=== PATIENT | female | born 1955 | race Caucasian/White ===

== ENCOUNTER 2017-01-15 10:43 | Emergency (ER) | payer BC ==
[2017-01-15 12:15] VITALS: BP 111/77
[2017-01-15] MEDS ORDERED: Albuterol 2.5 MG/3 ML NEB.SOL* (0.083%) INH ONE (12:41)
[2017-01-15] MEDS ORDERED: Ipratropium 0.5MG/2.5ML NEB* 0.5 MG/2.5 ML NEB.SOLN INH ONE (12:41)
--- NOTE | 2017-01-15 12:47 | UC ---
Respiratory Complaint HPI - History of Current Complaint Chief Complaint: UCGeneralIllness Stated Complaint: COUGH, AND CHEST CONGESTION Time Seen by Provider: 01/15/17 12:36 Hx Obtained From: Patient ?: No Onset/Duration: Gradual Onset - started 1-2 weeks ago with sinus congestion and cough. whole office is sick with same. now she is coughing worse and wheezing. has tried albuterol but not today is also using OTC cold meds and tesselon perles with little relief Timing: Intermittent Episodes Severity Initially: Mild Severity Currently: Moderate Aggravating Factors: Exertion, Deep Breaths Alleviating Factors: Nothing Associated Signs And Symptoms: Positive: URI, Nasal Congestion. Negative: Fever , Chills Related History: Seasonal Allergies - Allergies/Home Medications Allergies/Adverse Reactions: Allergies Allergy/AdvReac Type Severity Reaction Status Date / Time Sulfa Antibiotics Allergy Intermediate Hives Verified 01/15/17 12:06 Levofloxacin [From Levaquin] Allergy Hives Verified 01/15/17 12:06 fluroquinolones Allergy Hives Uncoded 01/15/17 12:06 Home Medications: Home Medications Benzonatate CAP* [Tessalon CAP*] 100 mg PO TID 01/15/17 [History Confirmed 01/15] PMH/Surg Hx/FS Hx/Imm Hx Previously Healthy: Yes Endocrine History Of: Denies: Diabetes Cardiovascular History Of: Denies: Hypertension Respiratory History Of: Reports: Asthma - Allergies Psychological History Of: Denies: Anxiety, Depression - Surgical History Surgical History: Yes Surgery Procedure, Year, and Place: T&A age 7 years. Left hand RA nodule. Left breast lobectomy - Family History Known Family History: Positive: None - Social History Occupation: Employed Full-time Lives: With Family Alcohol Use: Weekly Alcohol Amount: a few drinks per week Substance Use Type: None Smoking Status (MU): Never Smoked Tobacco Have You Smoked in the Last Year: No Review of Systems Constitutional: Negative Skin: Negative Eyes: Negative ENT: Other - no ear pain, does have NC Respiratory: Cough Cardiovascular: Negative Musculoskeletal: Negative Neurological: Negative Psychological: Negative All Other Systems Reviewed And Are Negative: Yes Physical Exam Triage Information Reviewed: Yes Appearance: Well-Appearing, No Pain Distress, Well-Nourished Vital Signs: Initial Vital Signs Temp 98.4 F 01/15/17 12:07 Pulse 88 01/15/17 12:07 Resp 18 01/15/17 12:07 BP 111/77 01/15/17 12:07 Pulse Ox 98 01/15/17 12:07 Vital Signs Reviewed: Yes Eyes: Positive: Conjunctiva Clear ENT: Positive: Pharynx normal, Nasal congestion, TMs normal Neck exam: Normal Neck: Positive: No Lymphadenopathy Respiratory: Positive: No respiratory distress, Wheezing - Upper airways bilaterally Cardiovascular Exam: Normal Cardiovascular: Positive: RRR, No Murmur, Pulses Normal, Brisk Capillary Refill Neurological Exam: Normal Psychological Exam: Normal Skin Exam: Normal UC Diagnostic Evaluation - Laboratory O2 Sat by Pulse Oximetry: 98 Re-Evaluation - Re-Evaluation First Eval Re-Evaluation Time: 13:15 Change: Improved - pt states she can breath much better after neb treatment wheezes resolved, improved air movement Respiratory Course/Dx - Differential Dx/Diagnosis Provider Diagnoses: bronchitis, bronchospasm Discharge - Discharge Plan Condition: Improved Disposition: HOME Prescriptions: Azithromycin TAB* [Zithromax TAB (Z-DAVID) 250 mg #6 tabs] 2 tab PO .TODAY, THEN 1 DAILY #1 david Patient Education Materials: Acute Bronchitis (ED) Additional Instructions: drink plenty of fluids take zithromax as directed on prescription Use your albuterol inhaler as directed and Symbicort inhaler (2 puffs bid) return here or ER if no better 2-3 days or if worse at any time.
== END 2017-01-15 13:33 | disposition home or self-care (01) ==
LOC: UCEAST 10:43
DX: J20.9 Acute bronchitis, unspecified (principal); Z88.8 Allergy status to other drugs, medicaments and biological substances; J45.909 Unspecified asthma, uncomplicated
CPT/HCPCS: 99212; G0463; J7644

== ENCOUNTER 2018-01-03 13:37 | Emergency (ER) | payer BC ==
[2018-01-03 15:39] VITALS: BP 135/83
--- NOTE | 2018-01-03 15:46 | UC ---
Throat Pain/Nasal Tejinder HPI - HPI Summary HPI Summary: Pt presents with sinus pain/pressure/congestion and headache for the last week. Over the last two days she has developed lower back pain, she thinks this is a muscle spasm from tossing and turning at night. She has been taking OTC mucinex for her sinus symptoms with no relief. She denies fever, chills, SOB, chest pain , abdominal pain, n/v/d/c, bowel or bladder dysfunction - History of Current Complaint Chief Complaint: UCGeneralIllness Stated Complaint: CONGESTED Time Seen by Provider: 01/03/18 15:46 Hx Obtained From: Patient Hx Last Menstrual Period: NA Onset/Duration: Gradual Onset Severity: Moderate Pain Intensity: 6 Pain Scale Used: 0-10 Numeric - Allergies/Home Medications Allergies/Adverse Reactions: Allergies Allergy/AdvReac Type Severity Reaction Status Date / Time MS Sulfa Antibiotics Allergy Intermediate Hives Verified 01/03/18 15:39 [Sulfa Antibiotics] MS Levofloxacin Allergy Hives Verified 01/03/18 15:39 [From Levaquin] fluroquinolones Allergy Hives Uncoded 01/03/18 15:39 PMH/Surg Hx/FS Hx/Imm Hx - Additional Past Medical History Additional PMH: RA. - Surgical History Surgical History: Yes Surgery Procedure, Year, and Place: T&A age 7 years. Left hand RA nodule. Left breast lobectomy. radical hysterectomy-cancer 2017 - Family History Known Family History: Positive: None - Social History Occupation: Employed Full-time Lives: With Family Alcohol Use: Occasionally Alcohol Amount: a few drinks per week Substance Use Type: None Smoking Status (MU): Never Smoked Tobacco Have You Smoked in the Last Year: No Review of Systems Constitutional: Negative Skin: Negative Eyes: Negative ENT: Nasal Discharge, Sinus Congestion, Sinus Pain/Tenderness Respiratory: Negative Cardiovascular: Negative Gastrointestinal: Negative Genitourinary: Negative Neurovascular: Negative Musculoskeletal: Other: - LBP Neurological: Headache Psychological: Negative All Other Systems Reviewed And Are Negative: Yes Physical Exam Triage Information Reviewed: Yes Appearance: Well-Appearing, No Pain Distress, Well-Nourished Vital Signs: Initial Vital Signs Temp 99.6 F 01/03/18 15:33 Pulse 65 01/03/18 15:33 Resp 16 01/03/18 15:33 BP 135/83 01/03/18 15:33 Pulse Ox 98 02/13/18 15:33 Vital Signs Reviewed: Yes Eyes: Positive: Conjunctiva Clear. Negative: Conjunctiva Inflamed, Discharge ENT: Positive: Hearing grossly normal, Pharynx normal, Nasal congestion, Nasal drainage, TMs normal, Sinus tenderness, Uvula midline. Negative: Pharyngeal erythema, TM bulging, TM dull, TM red, Tonsillar swelling, Tonsillar exudate, Hoarse voice Neck: Positive: Supple, Nontender, No Lymphadenopathy Respiratory: Positive: Chest non-tender, Lungs clear, Normal breath sounds, No respiratory distress, No accessory muscle use Cardiovascular: Positive: RRR, No Murmur, Pulses Normal Abdomen Description: Negative: CVA Tenderness (R), CVA Tenderness (L) Musculoskeletal: Positive: Strength Intact - B/L LEs, ROM Intact - B/L LEs, Other: - TTP over lumbar paraspinal muscles - worse on right. Negative SLR and MAGDA. Neurological: Positive: Alert Psychological: Positive: Age Appropriate Behavior Skin: Negative: rashes Throat Pain/Nasal Course/Dx - Course Course Of Treatment: Sinusitis. Low back spasm - Differential Dx/Diagnosis Provider Diagnoses: Sinusitis. Low back spasm Discharge - Discharge Plan Condition: Stable Disposition: HOME Prescriptions: Azithromycin TAB* [Zithromax TAB (Z-DAVID) 250 mg #6 tabs] 2 tab PO .TODAY, THEN 1 DAILY #1 david Cyclobenzaprine TAB* [Flexeril 10 MG TAB*] 10 mg PO BID PRN #20 tab PRN Reason: Pain Patient Education Materials: Sinusitis (ED) Referrals: No Primary Care Phys,NOPCP [Primary Care Provider] - Additional Instructions: If you develop a fever, shortness of breath, chest pain, new or worsening symptoms - please call your PCP or go to the ED. Your blood pressure was mildly elevated at todays visit. Please see your primary provider within 4 weeks for recheck and re-evaluation.
== END 2018-01-03 15:55 | disposition home or self-care (01) ==
LOC: UCEAST 13:37
DX: J32.9 Chronic sinusitis, unspecified (principal); M62.830 Muscle spasm of back; Z88.1 Allergy status to other antibiotic agents; Z88.2 Allergy status to sulfonamides
CPT/HCPCS: 99212; G0463

== ENCOUNTER 2018-02-06 09:37 | Emergency (ER) | payer BC ==
[2018-02-06 10:10] VITALS: BP 141/87
[2018-02-06] MEDS ORDERED: Albuterol/Ipratropium NEB.SOL* Albuterol 2.5 MG/Ipratropium 0.5 MG 3 ML INH ONE (10:32)
--- NOTE | 2018-02-06 10:32 | UC ---
FLU HPI - HPI Summary HPI Summary: This lady comes in on beginning of day #3 of upper respiratory symptoms chest congestions fevers chills headache sinus pain sore throat and myalgias arthralgias. had similar symptoms last week diagnosed with bronchitis is still homesick. 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 - History of Current Complaint Chief Complaint: UCGeneralIllness Stated Complaint: URI Time Seen by Provider: 02/06/18 10:26 Hx Obtained From: Patient Hx Last Menstrual Period: NA ?: No Onset/Duration: Sudden Onset, Lasting Days - begining day3, Still Present Severity Currently: Moderate Severity Initially: Severe Pain Intensity: 6 Pain Scale Used: 0-10 Numeric Associated Signs & Symptoms: Positive: Fever, Myalgia, Cough, Nasal Congestion, Headache Related Hx: Possible Flu/Infectious Exposure - Allergy/Home Medications Allergies/Adverse Reactions: Allergies Allergy/AdvReac Type Severity Reaction Status Date / Time levofloxacin [From Levaquin] Allergy Hives Verified 02/06/18 10:04 Sulfa (Sulfonamide Allergy Hives Verified 02/06/18 10:04 Antibiotics) fluroquinolones Allergy Hallucinati Uncoded 02/06/18 10:10 ons PMH/Surg Hx/FS Hx/Imm Hx Previously Healthy: Yes - Surgical History Surgical History: Yes Surgery Procedure, Year, and Place: T&A age 7 years. Left hand RA nodule. Left breast lobectomy. radical hysterectomy-cancer 2017 - Family History Known Family History: Positive: None - Social History Occupation: Employed Full-time Lives: With Family Alcohol Use: Occasionally Alcohol Amount: a few drinks per week Substance Use Type: None Smoking Status (MU): Never Smoked Tobacco Have You Smoked in the Last Year: No - Immunization History Most Recent Tetanus Shot: UTD Review of Systems Constitutional: Fever, Chills, Fatigue Skin: Negative Eyes: Negative ENT: Sore Throat, Sinus Congestion Respiratory: Cough Cardiovascular: Negative Gastrointestinal: Negative Genitourinary: Negative Motor: Negative Neurovascular: Negative Musculoskeletal: Arthralgia, Myalgia Neurological: Headache Psychological: Negative Is Patient Immunocompromised?: No All Other Systems Reviewed And Are Negative: Yes Physical Exam Triage Information Reviewed: Yes Appearance: Well-Nourished, Ill-Appearing, Pain Distress Vital Signs: Initial Vital Signs Temp 99.3 F 02/06/18 10:05 Pulse 89 02/06/18 10:05 Resp 20 02/06/18 10:05 BP 141/87 02/06/18 10:05 Pulse Ox 99 02/06/18 10:05 Vital Signs Reviewed: Yes Eye Exam: Normal Eyes: Positive: Conjunctiva Clear ENT Exam: Normal ENT: Positive: Normal ENT inspection, Hearing grossly normal, Pharynx normal, Nasal congestion, TMs normal, Uvula midline. Negative: Tonsillar swelling, Tonsillar exudate, Trismus, Muffled voice, Hoarse voice, Dental tenderness, Sinus tenderness Dental Exam: Normal Neck exam: Normal Neck: Positive: Supple, Nontender, No Lymphadenopathy Respiratory Exam: Normal Respiratory: Positive: Chest non-tender, Lungs clear, No respiratory distress, No accessory muscle use, Wheezing Cardiovascular Exam: Normal Cardiovascular: Positive: RRR, No Murmur, Pulses Normal, Brisk Capillary Refill Musculoskeletal Exam: Normal Musculoskeletal: Positive: Strength Intact, ROM Intact, No Edema Neurological Exam: Normal Neurological: Positive: Alert, Muscle Tone Normal Psychological Exam: Normal Skin Exam: Normal Diagnostics - Laboratory Diagnostic Studies Completed/Ordered: Influenza A is negative influenza B is positive Re-Evaluation - Re-Evaluation First Eval Change: Improved - Chest congestion tightness resolved after DuoNeb patient feels much better Flu Course/Dx - Course Course Of Treatment: Discharge to home with Tamiflu and albuterol increase fluids rest Tylenol ibuprofen OTC treatments for symptom relief out of work for the week follow blood pressure with PCP in next 1-2 weeks referral made for primary care provider - Differential Dx/Diagnosis Provider Diagnoses: Elevated blood pressure without diagnosis of hypertension Discharge - Discharge Plan Condition: Stable Disposition: HOME Prescriptions: Albuterol HFA INHALER* [Ventolin HFA Inhaler*] 2 puff INH Q4H PRN #1 mdi PRN Reason: cough/wheeze/chest tightness Oseltamivir Phosphate [Tamiflu] 75 mg PO BID #10 capsule Patient Education Materials: Influenza (DC), Hypertension (ED) Forms: *Work Release Referrals: [facility] [place]] - 2 Weeks
== END 2018-02-06 11:20 | disposition home or self-care (01) ==
LOC: UCEAST 09:37
DX: R50.9 Fever, unspecified (principal); R09.89 Other specified symptoms and signs involving the circulatory and respiratory systems; R51 Headache; J02.9 Acute pharyngitis, unspecified; M25.50 Pain in unspecified joint; M79.1 Myalgia; R03.0 Elevated blood-pressure reading, without diagnosis of hypertension; Z88.3 Allergy status to other anti-infective agents; Z88.2 Allergy status to sulfonamides; Z88.8 Allergy status to other drugs, medicaments and biological substances
CPT/HCPCS: 87502; 99212; A9270-GY; G0463

== ENCOUNTER 2018-02-15 16:20 | Emergency (ER) | payer BC ==
[2018-02-15 16:28] VITALS: BP 142/90
--- NOTE | 2018-02-15 16:41 | UC ---
Respiratory Complaint HPI - HPI Summary HPI Summary: About 1 week ago dx with influenza and treated with tamiflu,, now has continued chest congestion..patient is concerned about a secondary bronchial infection - History of Current Complaint Chief Complaint: UCRespiratory Stated Complaint: CONGESTED Time Seen by Provider: 02/15/18 16:36 Hx Obtained From: Patient Hx Last Menstrual Period: NA ?: No Onset/Duration: Gradual Onset, Lasting Days, Resolved - all other flu symptoms have resolved Timing: Constant Severity Initially: Moderate Severity Currently: Moderate Pain Intensity: 8 Pain Scale Used: 0-10 Numeric Character: Cough: Nonproductive Aggravating Factors: Nothing Alleviating Factors: Nothing Associated Signs And Symptoms: Positive: Pleuritic Chest Pain - Allergies/Home Medications Allergies/Adverse Reactions: Allergies Allergy/AdvReac Type Severity Reaction Status Date / Time levofloxacin [From Levaquin] Allergy Hives Verified 02/15/18 16:28 Sulfa (Sulfonamide Allergy Hives Verified 02/15/18 16:28 Antibiotics) fluroquinolones Allergy Hallucinati Uncoded 02/15/18 16:28 ons PMH/Surg Hx/FS Hx/Imm Hx Previously Healthy: Yes - Surgical History Surgical History: Yes Surgery Procedure, Year, and Place: T&A age 7 years. Left hand RA nodule. Left breast lobectomy. radical hysterectomy-cancer 2017 - Family History Known Family History: Positive: None - Social History Occupation: Employed Full-time Lives: With Family Alcohol Use: Occasionally Alcohol Amount: a few drinks per week Substance Use Type: None Smoking Status (MU): Never Smoked Tobacco Have You Smoked in the Last Year: No Review of Systems Constitutional: Negative Skin: Negative Eyes: Negative ENT: Negative Respiratory: Cough Cardiovascular: Chest Pain - with cough/bronchial Gastrointestinal: Negative Genitourinary: Negative Motor: Negative Neurovascular: Negative Musculoskeletal: Negative Neurological: Negative Psychological: Negative Is Patient Immunocompromised?: No All Other Systems Reviewed And Are Negative: Yes Physical Exam Triage Information Reviewed: Yes Appearance: Well-Appearing, No Pain Distress, Well-Nourished Vital Signs: Initial Vital Signs Temp 97.9 F 02/15/18 16:24 Pulse 82 02/15/18 16:24 Resp 18 02/15/18 16:24 BP 142/90 02/15/18 16:24 Pulse Ox 98 02/15/18 16:24 Vital Signs Reviewed: Yes Eye Exam: Normal Eyes: Positive: Conjunctiva Clear ENT Exam: Normal ENT: Positive: Normal ENT inspection, Hearing grossly normal, Pharynx normal, TMs normal, Uvula midline. Negative: Nasal congestion, Tonsillar swelling, Tonsillar exudate, Trismus, Muffled voice, Hoarse voice, Dental tenderness, Sinus tenderness Dental Exam: Normal Neck exam: Normal Neck: Positive: Supple, Nontender, No Lymphadenopathy Respiratory Exam: Normal Respiratory: Positive: Chest non-tender, Lungs clear, Normal breath sounds, No respiratory distress, No accessory muscle use Cardiovascular Exam: Normal Cardiovascular: Positive: RRR, No Murmur, Pulses Normal, Brisk Capillary Refill Musculoskeletal Exam: Normal Musculoskeletal: Positive: Strength Intact, ROM Intact, No Edema Neurological Exam: Normal Neurological: Positive: Alert, Muscle Tone Normal Psychological Exam: Normal Skin Exam: Normal UC Diagnostic Evaluation - Laboratory O2 Sat by Pulse Oximetry: 98 Respiratory Course/Dx - Course Course Of Treatment: Continue albuterol, gobitussin, increase fluids, should symptoms fail to resolve or worsen may start antibiodic follow with pcp - Differential Dx/Diagnosis Provider Diagnoses: Acute bronchitis with bronchospastic cough Discharge - Sign-Out/Discharge Documenting (check all that apply): Discharge - Discharge Plan Condition: Stable Disposition: HOME Prescriptions: Azithromycin TAB* [Zithromax TAB (Z-DAVID) 250 mg #6 tabs] 2 tab PO .TODAY, THEN 1 DAILY #1 david Patient Education Materials: Viral Syndrome (ED), Acute Cough (ED) Referrals: [facility] [place]] - If Needed - Billing Disposition and Condition Condition: STABLE Disposition: HOME
--- NOTE | 2018-02-15 17:13 | RAD ---
INDICATION: Left upper lung wheezing COMPARISON: None TECHNIQUE: PA and lateral views of the chest were obtained. FINDINGS: The heart and mediastinum are normal in size and contour. The lungs are grossly clear. There is no evidence of large pleural effusion. Visualized bones are normal for the patient's age. There is no radiographic evidence of free air beneath the diaphragm IMPRESSION: No radiographic evidence of acute cardiopulmonary disease.
== END 2018-02-15 17:30 | disposition home or self-care (01) ==
LOC: UCEAST 16:20
DX: J20.9 Acute bronchitis, unspecified (principal); Z88.1 Allergy status to other antibiotic agents; Z88.2 Allergy status to sulfonamides
CPT/HCPCS: 71046; 99212; G0463

== ENCOUNTER 2018-06-28 07:04 | Emergency (ER) | payer BC ==
[2018-06-28 07:13] VITALS: BP 115/83
--- NOTE | 2018-06-28 07:26 | UC ---
Ear Complaint HPI - HPI Summary HPI Summary: This is nesha Tracey documenting for attending Darin Lopez . This patient is a 62 year old F presenting to [facility] [place] a chief complaint of intermittent right sided ear and facial pain that began yesterday. The patient rates the pain 8/10 in severity and she describes it as feeling full. Symptoms aggravated by palpation. Patient reports trouble sleeping secondary to pain and right sided gum pain. Patient denies rash, fever, chills, jaw pain, and sore throat. Pt states she has not been swimming recently. Pt did not want to take amoxicillin because it causes nausea. - History of Current Complaint Chief Complaint: UCEar Stated Complaint: EAR PAIN /PAIN ON SIDE OF HEAD Time Seen by Provider: 06/28/18 07:18 Hx Obtained From: Patient Hx Last Menstrual Period: NA Onset/Duration: Lasting Days - 1, Still Present Severity Initially: Severe Severity Currently: Severe Pain Intensity: 8 Pain Scale Used: 0-10 Numeric Associated Signs/Symptoms: Negative: Hearing Loss, URI Symptoms - Allergies/Home Medications Allergies/Adverse Reactions: Allergies Allergy/AdvReac Type Severity Reaction Status Date / Time levofloxacin [From Levaquin] Allergy Hives Verified 06/28/18 07:13 Sulfa (Sulfonamide Allergy Hives Verified 06/28/18 07:13 Antibiotics) fluroquinolones Allergy Hallucinati Uncoded 06/28/18 07:13 ons PMH/Surg Hx/FS Hx/Imm Hx Respiratory History: Asthma Other History Of: Negative For: Anticoagulant Therapy - Surgical History Surgical History: Yes Surgery Procedure, Year, and Place: T&A age 7 years. Left hand RA nodule. Left breast lobectomy. radical hysterectomy-cancer 2017 - Family History Known Family History: Negative: Respiratory Disease, Seizure Disorder, Blood Disorder - Social History Alcohol Use: Occasionally Alcohol Amount: a few drinks per week Substance Use Type: None Smoking Status (MU): Never Smoked Tobacco Have You Smoked in the Last Year: No Review of Systems Constitutional: Negative - fever, Other - trouble sleeping due to pain ENT: Ear Ache - with facial pain, Other - right sided gum pain All Other Systems Reviewed And Are Negative: Yes Physical Exam - Summary Physical Exam Summary: General: well-appearing, no pain distress Skin: warm, color reflects adequate perfusion, dry, no rash Head: TTP in the right temporal and parietal area Eyes: EOMI, JOANNE ENT: there is some cerumen debris in the right ear canal Neck: supple, nontender Respiratory: CTA, breath sounds present Cardiovascular: RRR Abdomen: soft, nontender Bowel: present Musculoskeletal: normal, strength/ROM intact Neurological: sensory/motor intact, A&O x3 Psychological: affect/mood appropriate Triage Information Reviewed: Yes Vital Signs: Initial Vital Signs Temp 99 F 06/28/18 07:10 Pulse 100 06/28/18 07:10 Resp 18 06/28/18 07:10 BP 115/83 06/28/18 07:10 Pulse Ox 100 06/28/18 07:10 Vital Signs Reviewed: Yes Ear Complaint Course/Dx - Course Course Of Treatment: POSSIBLE EARLY SHINGLES BUT, NO RASH AT THIS TIME. WILL TREAT FOR OE/INFECTION. F/U PMD. THE PATIENT KNOWS TO GET RECHECKED IF RASH DEVELOPS OR NOT IMPROVED. ALSO DISCUSSED TEMPORAL ARTERITIS A POSSIBILITY. - Differential Dx/Diagnosis Provider Diagnoses: RIGHT SIDED HED AND EAR PAIN Discharge - Sign-Out/Discharge Documenting (check all that apply): Patient Departure - Discharge Plan Condition: Stable Disposition: HOME Prescriptions: Amoxicillin PO (*) [Amoxicillin 875 MG (*)] 875 mg PO BID #20 tab Neomyc/Polym/HC 1% OTIC SUSP* [Cortisporin Otic Susp 1%*] 4 drop RIGHT EAR QID # 1 btl Patient Education Materials: Earache (ED) Referrals: Mike Urias MD [Primary Care Provider] - Additional Instructions: FOLLOW UP WITH YOUR DOCTOR IF YOUR RIGHT SIDED HEAD PAIN CONTINUES OR YOU DO NOT IMPROVE COMPLETELY. IF YOU DEVELOP A RASH, GET SEEN AGAIN RIGHT AWAY YOU MAY HAVE SHINGLES AND WILL NEED TO BE STARTED ON AN ANTI VIRAL. GET RECHECKED FOR ANY WORSENING OF YOUR CONDITION; RASH, PAIN, FEVER, YOU FEEL ILL OR QUESTIONS OR CONCERNS. - Billing Disposition and Condition Condition: STABLE Disposition: Home Attestation Statement Scribe Attestation: This is nesha Tracey documenting for attending Darin Lopez . User Type: Provider with Nesha Tinajero I, Dr. Lopez, personally performed the services described in this documentation as scribed in my presence and it is both accurate and complete. Provider Attestation: The documentation recorded by the scribe accurately reflects the service Tonie personally performed and the decisions made by me.
== END 2018-06-28 08:06 | disposition home or self-care (01) ==
LOC: UCEAST 07:04
DX: H92.01 Otalgia, right ear (principal); H61.21 Impacted cerumen, right ear; R51 Headache; Z88.1 Allergy status to other antibiotic agents; Z88.2 Allergy status to sulfonamides
CPT/HCPCS: 99212; G0463

== ENCOUNTER 2018-09-10 14:04 | Emergency (ER) | payer BC ==
[2018-09-10 14:50] VITALS: BP 122/66
--- NOTE | 2018-09-10 15:14 | UC ---
Respiratory Complaint HPI - HPI Summary HPI Summary: Started getting sick 8 or 9 days ago[address] Saw PCP Dr[address] Urias 6 days ago, was diagnosed with pneumonia and given zithromax and tessalon. Still coughing, not feeling much better. Denies known fevers. - History of Current Complaint Chief Complaint: UCRespiratory Stated Complaint: COUGH Time Seen by Provider: 09/10/18 14:57 Hx Obtained From: Patient Hx Last Menstrual Period: NA ?: No Onset/Duration: Gradual Onset, Lasting Days Timing: Constant Severity Initially: Moderate Severity Currently: Moderate Pain Intensity: 8 Character: Cough: Productive Aggravating Factors: Deep Breaths, Recumbent Position Associated Signs And Symptoms: Positive: Dyspnea, Wheezing, URI, Nasal Congestion - Allergies/Home Medications Allergies/Adverse Reactions: Allergies Allergy/AdvReac Type Severity Reaction Status Date / Time levofloxacin [From Levaquin] Allergy Hives Verified 09/10/18 14:51 Sulfa (Sulfonamide Allergy Hives Verified 09/10/18 14:51 Antibiotics) fluroquinolones Allergy Hallucinati Uncoded 09/10/18 14:51 ons Home Medications: Home Medications Benzonatate CAP* [Tessalon 100 MG CAP*] 100 mg PO TID 09/10/18 [History Confirmed 09/10/18] PMH/Surg Hx/FS Hx/Imm Hx Respiratory History: Asthma Other Cancer History: uterine Other History Of: Negative For: Anticoagulant Therapy - Surgical History Surgical History: Yes Surgery Procedure, Year, and Place: T&A age 7 years. Left hand RA nodule. Left breast lobectomy. radical hysterectomy-cancer 2017 - Family History Known Family History: Negative: Respiratory Disease, Seizure Disorder, Blood Disorder - Social History Alcohol Use: Occasionally Alcohol Amount: a few drinks per week Substance Use Type: None Smoking Status (MU): Never Smoked Tobacco Have You Smoked in the Last Year: No Review of Systems Constitutional: Fatigue Skin: Negative Eyes: Negative ENT: Sore Throat, Nasal Discharge Respiratory: Shortness Of Breath, Cough Cardiovascular: Negative Gastrointestinal: Negative Genitourinary: Negative Motor: Negative Neurovascular: Negative Musculoskeletal: Negative Neurological: Negative Psychological: Negative Is Patient Immunocompromised?: No All Other Systems Reviewed And Are Negative: Yes Physical Exam Triage Information Reviewed: Yes Appearance: Ill-Appearing Vital Signs: Initial Vital Signs Temp 98.6 F 10/21/18 14:42 Pulse 82 09/10/18 14:42 Resp 18 09/10/18 14:42 BP 122/66 09/10/18 14:42 Pulse Ox 96 09/10/18 14:42 Vital Signs Reviewed: Yes Eye Exam: Normal Eyes: Positive: Conjunctiva Clear ENT: Positive: Pharynx normal, Nasal congestion, TMs normal, Hoarse voice Dental Exam: Normal Neck exam: Normal Neck: Positive: Supple, Nontender, No Lymphadenopathy Respiratory: Positive: Rhonchi, Wheezing, Other: - frequent harsh cough Cardiovascular Exam: Normal Cardiovascular: Positive: RRR, No Murmur Musculoskeletal Exam: Normal Neurological Exam: Normal Neurological: Positive: Alert Psychological Exam: Normal Skin Exam: Normal UC Diagnostic Evaluation - Laboratory O2 Sat by Pulse Oximetry: 96 - Radiology Xray Interpretation: No Acute Changes Radiology Interpretation Completed By: Radiologist Respiratory Course/Dx - Differential Dx/Diagnosis Provider Diagnoses: Acute bronchitis. bronchospasm Discharge - Sign-Out/Discharge Documenting (check all that apply): Patient Departure All imaging exams completed and their final reports reviewed: Yes - Discharge Plan Condition: Stable Disposition: HOME Prescriptions: Albuterol HFA INHALER* [Ventolin HFA Inhaler*] 2 puff INH Q4H PRN #1 mdi PRN Reason: cough/wheeze/chest tightness guaiFENesin [Mucus-ER Max] 1,200 mg PO BID #14 tab.er.12h predniSONE [Prednisone 20 MG TAB] 40 mg PO DAILY #10 tablet Patient Education Materials: Acute Bronchitis (ED) Referrals: Mike Urias MD [Primary Care Provider] - 3 Days Additional Instructions: Please follow up with your primary care office in 2-3 days to ensure that you are improving. If not, we may need to start you on a second antibiotic or other breathing medications. Feel free to come back at any time. - Billing Disposition and Condition Condition: STABLE Disposition: Home
--- NOTE | 2018-09-10 15:33 | RAD ---
HISTORY: cough, trouble breathing COMPARISONS: February 15, 2018 VIEWS: 4: Frontal dual-energy and lateral views of the chest. FINDINGS: CARDIOMEDIASTINAL SILHOUETTE: The cardiomediastinal silhouette is normal. FATMATA: The fatmata are normal. PLEURA: The costophrenic angles are sharp. No pleural abnormalities are noted. LUNG PARENCHYMA: The lungs are clear. ABDOMEN: The upper abdomen is clear. There is no subphrenic gas. BONES AND SOFT TISSUES: Mild degenerative changes are noted along the spine. OTHER: None. IMPRESSION: NO ACTIVE CARDIOPULMONARY DISEASE.
== END 2018-09-10 15:57 | disposition home or self-care (01) ==
LOC: UCEAST 14:04
DX: J20.9 Acute bronchitis, unspecified (principal); Z88.1 Allergy status to other antibiotic agents; Z88.2 Allergy status to sulfonamides
CPT/HCPCS: 71046; 99212; G0463

== ENCOUNTER 2019-02-14 09:40 | Emergency (ER) | payer BC ==
[2019-02-14 10:30] VITALS: BP 165/77
--- NOTE | 2019-02-14 10:30 | UC ---
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 DENIES SHORTNESS OF BREATH, DIZZINESS, NAUSEA, SWEATS. CHECKED HER BP AND IT WAS 180/100. DENIES ANY HISTORY OF HYPERTENSION. DOES NOT TAKE ANY MEDICATIONS. NO FAMILY HISTORY OF CARDIAC DISEASE, DIABETES, HIGH BLOOD PRESSURE. STATES SHE HAS HAD INTERMITTENT EPIGASTRIC DISCOMFORT OVER THE PAST FEW MONTHS. - History of Current Complaint Chief Complaint: UCChestPain Stated Complaint: ELEVATED BP/CHESTPAIN Time Seen by Provider: 02/14/19 09:49 Hx Obtained From: Patient Hx Last Menstrual Period: NA Onset/Duration: Sudden Onset, Lasting Minutes, Resolved Initial Severity: Moderate Current Severity: None Pain Intensity: 0 Chest Pain Location: Lower Sternal Character: Sharp/Stabbing Aggravating Factor(s): Nothing Alleviating Factor(s): Spontaneous Resolution Associated Signs & Symptoms: Negative: SOB, Fever, Nausea/Vomiting, Cough - Allergy/Home Medications Allergies/Adverse Reactions: Allergies Allergy/AdvReac Type Severity Reaction Status Date / Time levofloxacin [From Levaquin] Allergy Hives Verified 02/14/19 10:01 Sulfa (Sulfonamide Allergy Hives Verified 02/14/19 10:01 Antibiotics) fluroquinolones Allergy Hallucinati Uncoded 02/14/19 10:01 ons Home Medications: Home Medications Multivitamin [Multivitamins] 1 cap PO DAILY 02/14/19 [History Confirmed 02/14/19 ] PMH/Surg Hx/FS Hx/Imm Hx - Additional Past Medical History Additional PMH: ALLERGIES Respiratory History: Asthma Other Cancer History: ENDOMETRIAL CANCER 2017 Other History Of: Negative For: Anticoagulant Therapy - Surgical History Surgical History: Yes Surgery Procedure, Year, and Place: T&A age 7 years. Left hand RA nodule. Left breast lobectomy. radical hysterectomy-cancer 2017 - Family History Known Family History: Negative: Respiratory Disease, Seizure Disorder, Blood Disorder - Social History Alcohol Use: Occasionally Alcohol Amount: a few drinks per week Substance Use Type: None Smoking Status (MU): Never Smoked Tobacco Have You Smoked in the Last Year: No Review of Systems All Other Systems Reviewed And Are Negative: Yes Constitutional: Positive: Negative Respiratory: Positive: Negative Cardiovascular: Positive: Negative Gastrointestinal: Positive: Abdominal Pain Genitourinary: Positive: Negative Physical Exam Triage Information Reviewed: Yes Appearance: Well-Appearing, No Pain Distress, Well-Nourished Vital Signs: Initial Vital Signs Temp 98.4 F 02/14/19 09:54 Pulse 89 02/14/19 09:54 Resp 16 02/14/19 09:54 BP 162/72 02/14/19 09:54 Pulse Ox 98 02/14/19 09:54 Vital Signs Reviewed: Yes Eyes: Positive: Conjunctiva Clear ENT: Positive: Hearing grossly normal, Pharynx normal, TMs normal Neck: Positive: Supple, Nontender, No Lymphadenopathy Respiratory Exam: Normal Cardiovascular Exam: Normal Abdomen Description: Positive: Soft, Other: - DISTINCTLY TENDER RUQ AND EPIGASTRIC AREAS. NO RIGIDITY OR REBOUND. Negative: Distended, Guarding Bowel Sounds: Positive: Present Musculoskeletal: Positive: No Edema Neurological: Positive: Alert Psychological: Positive: Age Appropriate Behavior Skin: Negative: Rashes Diagnostics - EKG Cardiac Rate: NL Cardiac Rhythm: Sinus: Normal Ectopy: None ST Segment: Normal - Assessment/Plan Course Of Treatment: CONCERN FOR GALLBLADDER VS PANCREAS VS CARDIAC ETIOLOGY OF SYMPTOMS. PT DISTINCTLY TENDER IN EPIGASTRIC RUQ REGIONS. PT OFFERED TRANSPORT TO THE ED BY AMBULANCE BUT DECLINES. ADVISED THAT BY NOT TRAVELING IN A MONITORED SETTING SHE COULD BE RISKING WORSENING OF HER CONDITION THAT COULD POSE A THREAT TO HER LIFE, HEALTH AND MEDICAL SAFETY. SHE VERBALIZES UNDERSTANDING AND CONTINUES TO DECLINE AMBULANCE TRANSFER. - Clinical Impression Provider Diagnosis: Epigastric abdominal pain Discharge - Sign-Out/Discharge Documenting (check all that apply): Patient Departure All imaging exams completed and their final reports reviewed: No Studies - Discharge Plan Condition: Stable Disposition: TRANS [facility] Patient Education Materials: Chest Pain (ED), Epigastric Pain (ED) Referrals: Mike Uiras MD [Primary Care Provider] - If Needed Additional Instructions: GO DIRECTLY TO THE [facility] FROM HERE FOR FURTHER EVALUATION. YOU HAVE DECLINED TRANSFER TO THE ED BY AMBULANCE. BE ADVISED THAT BY NOT TRAVELING IN A MONITORED SETTING YOU COULD BE RISKING WORSENING OF YOUR CONDITION THAT COULD POSE A THREAT TO YOUR LIFE, HEALTH AND MEDICAL SAFETY. - Billing Disposition and Condition Condition: STABLE Disposition: Trans Higher Lvl of Care Fac
== END 2019-02-14 10:30 | disposition short-term general hospital (02) ==
LOC: UCEAST 09:40
DX: R10.13 Epigastric pain (principal); J45.909 Unspecified asthma, uncomplicated; R03.0 Elevated blood-pressure reading, without diagnosis of hypertension; Z88.2 Allergy status to sulfonamides; Z88.1 Allergy status to other antibiotic agents; Z88.8 Allergy status to other drugs, medicaments and biological substances
CPT/HCPCS: 93005; 99212; G0463

== ENCOUNTER 2019-02-14 10:57 | Emergency (ER) | payer BC ==
--- NOTE | 2019-02-14 11:26 | ED ---
HPI Chest Pain - HPI Summary HPI Summary: A 63 y/o female presents to [facility] with a chief complaint of chest pain since this morning. She reports that her CP starts in the middle and radiates to her right side. She claims that she has had chest pains for 6 months intermittently , lasting minutes and not occurring every day, but this morning her pain was worse. Combined with the fact that her BP was 180/100 at home today and she is usually more hypotensive, she decided to come to the ED. Now she reports no pain , claiming that her pain subsided on the car ride over here, but when she has her pain she rates it as a 9/10 in severity. She denies N/V or rash. She also reports RUQ abdominal pain. The patient denies a Hx of cardiac disease or HTN, she has no FHx of cardiac disease but reports a FHx of gallbladder issues. She denies having taken a stress test. She reports recently having 2 UTIs, and was treated with Keflex BID for three days. She also reports taking Prilosec intermittently for heartburn. She has not noticed any pain with eating and cannot correlate anything with the onset of her pain. Vital signs while in room HR: 80 bpm, O2 Sat: 100, BP: 155/79 - History of Current Complaint Chief Complaint: EDChestPainROMI Time Seen by Provider: 02/14/19 11:06 Hx Obtained From: Patient Hx Last Menstrual Period: NA Onset/Duration: Started Hours Ago, Resolved Timing: Intermittent, Lasting Minutes Initial Severity: Severe Current Severity: None Pain Intensity: 0 Pain Scale Used: 0-10 Numeric Chest Pain Location: Diffuse - right sided Chest Pain Radiates: No Character: Other: - intermittent pain, lasting minutes, worsening today, 9/10 Aggravating Factor(s): Nothing Alleviating Factor(s): Nothing Associated Signs and Symptoms: Positive: Negative - rash, Abdominal Pain. Negative: Fever, Nausea, Vomiting - Allergy/Home Medications Allergies/Adverse Reactions: Allergies Allergy/AdvReac Type Severity Reaction Status Date / Time Gadolinium-Containing Allergy Hives Verified 02/14/19 14:07 Contrast Medi levofloxacin [From Levaquin] Allergy Hives Verified 02/14/19 11:04 Sulfa (Sulfonamide Allergy Hives Verified 02/14/19 11:04 Antibiotics) fluroquinolones Allergy Hallucinati Uncoded 02/14/19 10:01 ons PMH/Surg Hx/FS Hx/Imm Hx Endocrine/Hematology History: Denies: Hx Anticoagulant Therapy, Hx Diabetes, Hx Thyroid Disease Cardiovascular History: Denies: Hx Hypertension Respiratory History: Reports: Hx Asthma - Allergies Denies: Hx Chronic Obstructive Pulmonary Disease (COPD) GI History: Denies: Hx Ulcer Psychiatric History: Denies: Hx Anxiety, Hx Depression - Cancer History Cancer Type, Location and Year: endometrial cancer 2016 Hx Chemotherapy: No - ENDOMETRIAL CANCER 2017 Hx Radiation Therapy: No - Surgical History Surgery Procedure, Year, and Place: T&A age 7 years. Left hand RA nodule. Left breast lobectomy. radical hysterectomy-cancer 2017 Infectious Disease History: No Infectious Disease History: Denies: Hx Hepatitis, Hx Human Immunodeficiency Virus (HIV), Traveled Outside the [place] in Last 30 Days - Family History Known Family History: Negative: Respiratory Disease, Seizure Disorder, Blood Disorder - Social History Alcohol Use: Occasionally Alcohol Amount: a few drinks per week Substance Use Type: Reports: None Hx Tobacco Use: No Smoking Status (MU): Never Smoked Tobacco Have You Smoked in the Last Year: No Review of Systems Negative: Fever Positive: Chest Pain Positive: Abdominal Pain. Negative: Vomiting, Nausea Negative: Rash All Other Systems Reviewed And Are Negative: Yes Physical Exam - Summary Physical Exam Summary: Appearance: Well appearing, no pain distress Skin: warm, dry, reflects adequate perfusion Head/face: normal Eyes: EOMI, JOANNE ENT: normal Neck: supple, non-tender Respiratory: CTA, breath sounds present Cardiovascular: RRR, pulses symmetrical Abdomen: Tenderness RUQ and epigastric area Musculoskeletal: normal, strength/ROM intact Neuro: normal, sensory motor intact, A&Ox3 Triage Information Reviewed: Yes Vital Signs On Initial Exam: Initial Vitals Temp Pulse Resp BP Pulse Ox 98.7 F 81 16 157/104 99 02/14/19 11:01 02/14/19 11:01 02/14/19 11:01 02/14/19 11:01 02/14/19 11:01 Vital Signs Reviewed: Yes Diagnostics - Vital Signs Vital Signs Temp Pulse Resp BP Pulse Ox 02/14/19 11:01 98.7 F 81 16 157/104 99 - Laboratory Result Diagrams: 02/14/19 12:09 02/14/19 12:09 Lab Statement: Any lab studies that have been ordered have been reviewed, and results considered in the medical decision making process. - Radiology CXR Radiology Interpretation Completed By: Radiologist Summary of Radiographic Findings: NO ACTIVE CARDIOPULMONARY DISEASE. ED physician has reviewed this imaging report. - CT abdomen/pelvis CT Interpretation Completed By: Radiologist Summary of CT Findings: FATTY INFILTRATION OF THE LIVER. NO ACUTE CT PATHOLOGY OF THE VISUALIZED ABDOMEN AND PELVIS. ED physician has reviewed this imaging report. - Ultrasound No standard instances Ultrasound Interpretation Completed By: Radiologist Summary of Ultrasound Findings: Abdomen Ultrasound impression: Cyst in the dome of the right lobe of the liver. No evidence of cholelithiasis or biliary ductal dictation. ED physician has reviewed this imaging report. - EKG 11:40 Cardiac Rate: NL - 65 bpm EKG Rhythm: Sinus Rhythm Summary of EKG Findings: EKG at 11:40 shows Normal sinus rhythm at 65 bpm. Re-Evaluation - Re-Evaluation First Eval Re-Evaluation Time: 13:17 Change: Unchanged Comment: Discussed results, will do a CT Second Eval Re-Evaluation Time: 15:27 Change: Unchanged Comment: Discussed CT results Third Eval Re-Evaluation Time: 16:11 Change: Improved Comment: Discussed plan for discharge Chest Pain Course/Dx - Course Course Of Treatment: A 63 y/o female presents to [facility] with a chief complaint of chest pain since this morning. She reports that her CP starts in the middle and radiates to her right side. She claims that she has had chest pains for 6 months intermittently, lasting minutes and not occurring every day, but this morning her pain was worse. The physical exam revealed Tenderness RUQ and epigastric area. Bloodwork and UA obtained. Abdomen Ultrasound impression: Cyst in the dome of the right lobe of the liver. No evidence of cholelithiasis or biliary ductal dictation. CXR impression: NO ACTIVE CARDIOPULMONARY DISEASE. In the ED course the patient was given Iohexol (contrast) IV. CT abdomen/pelvis impression: FATTY INFILTRATION OF THE LIVER. NO ACUTE CT PATHOLOGY OF THE VISUALIZED ABDOMEN AND PELVIS. The patient will be discharged with a prescription for Protonix. She was instructed to follow up with her PCP and get a stress test as an outpatient. The patient is agreeable with this plan. - Chest Pain Differential Diagnosis/HQI/PQRI: Angina, Lower Respiratory Infection, Other: - abd pain/cholecystitis - Diagnoses Provider Diagnoses: Atypical chest pain, Abdominal pain Discharge - Sign-Out/Discharge Documenting (check all that apply): Patient Departure - DC Patient Received Moderate/Deep Sedation with Procedure: No - Discharge Plan Condition: Stable Disposition: HOME Prescriptions: Pantoprazole TAB * [Protonix TAB*] 40 mg PO DAILY #30 tab Patient Education Materials: Chest Pain (DC), Abdominal Pain (ED) Referrals: Mike Urias MD [Primary Care Provider] - 3 Days Additional Instructions: Follow up with your PCP in 3 days, otherwise get a stress test as an outpatient. Return to the ED if you experience any new or worsening symptoms - Billing Disposition and Condition Condition: STABLE Disposition: Home - Attestation Statements Document Initiated by Scribe: Yes Documenting Scribe: Scout Logan Provider For Whom Hien is Documenting (Include Credential): Guanakito Solis MD Scribe Attestation: Scout Schilling scribed for Guanakito Solis MD on 02/14/19 at 1657. Scribe Documentation Reviewed: Yes Provider Attestation: The documentation as recorded by the Scout jeffries accurately reflects the service I personally performed and the decisions made by , Guanakito Solis MD Status of Scribe Document: Viewed
[2019-02-14 11:47] LABS: Urine Appearance Clear; Urine Bilirubin Negative (Negative); Urine Blood Negative (Negative); Urine Color Yellow; Urine Glucose Negative (Negative); Urine Ketones Negative (Negative); Urine Nitrite Negative (Negative); Urine Protein Negative (Negative); Urine Specific Gravity 1.013 (1.010-1.030); Urine Urobilinogen Negative (Negative)
[2019-02-14 12:28] LABS: Activated Partial Thrombo Time 32.2 seconds (26.0-36.3); INR 0.92 (0.77-1.02)
[2019-02-14 12:36] LABS: Albumin 4.3 g/dL (3.2-5.2); Albumin/Globulin Ratio 1.4 (1-3); BUN/Creatinine Ratio 25.6 (8-20); C Reactive Protein 1.28 mg/L (<8.01); Calcium 9.5 mg/dL (8.6-10.3); EGFR African American 90.9 (>60); EGFR Non-African American 75.1 (>60); Potassium 3.8 mmol/L (3.5-5.0); Total Bilirubin 0.5 mg/dL (0.2-1.0); Total Protein 7.3 g/dL (6.4-8.9)
[2019-02-14 12:56] LABS: ABS Basophils 0 10^3/ul (0-0.2); ABS Eosinophils 0 10^3/ul (0-0.6); ABS Lymphocytes 1.4 10^3/ul (1.0-4.8); ABS Monocytes 0.5 10^3/ul (0-0.8); ABS Neutrophils 5.2 10^3/ul (1.5-7.7); ABS Nucleated RBC 0 10^3/ul; Eosinophil % 0.6 %; Hematocrit 43 % (33-41); Hemoglobin 14.3 g/dL (12.0-16.0); Lymphocyte % 18.9 %; Mean Corpuscular HGB Conc 34 g/dL (31-36); Mean Corpuscular Hemoglobin 32 pg (27-31); Mean Corpuscular Volume 95 fL (80-97); Mean Platelet Volume 6.9 fL (7.4-10.4); Nucleated Red Blood Cells % 0; Platelet Count 303 10^3/uL (150-450); Red Blood Count 4.48 10^6 /uL (3.70-4.87); Red Cell Distribution Width 13 % (10.5-15); White Blood Count 7.1 10^3/uL (3.5-10.8)
[2019-02-14] MEDS ORDERED: Iohexol 300* (CONTRAST) 10 ML SDV IV ONE (14:08)
[2019-02-14] MEDS ORDERED: Pantoprazole TAB * 40 MG TAB PO ONE (15:32)
[2019-02-14 16:19] VITALS: BP 106/70
== END 2019-02-14 16:25 | disposition home or self-care (01) ==
LOC: ED 10:57
DX: R07.89 Other chest pain (principal); R10.9 Unspecified abdominal pain; Z88.2 Allergy status to sulfonamides; Z85.42 Personal history of malignant neoplasm of other parts of uterus
CPT/HCPCS: 36415; 71045; 74177; 76705; 80053; 81003; 83690; 84484; 85025; 85610; 85730; 86140; 93005; 99283; A9270-GY; Q9967

== ENCOUNTER 2019-04-02 05:38 | Day surgery (SDC) | payer BC ==
[~2019-04-02 05:38] MED LIST: Buffered Lidocaine 1% SYRIN* 1 ML/SYRINGE INTRADERM ONE
[2019-04-02] MEDS ORDERED: Lactated Ringers 1000 ML Bag* 1,000 ML IV SCH (06:00)
[2019-04-02] MEDS ORDERED: ceFAZolin 2 GM PREMIX in ORs 2 GM/50 ML BAG IVPB ONE (06:01)
[2019-04-02] MEDS ORDERED: Bupivacaine 0.25% EPI 200,000* 30 ML SDV ONE ×2 (06:48→08:50)
[2019-04-02] MEDS ORDERED: Iohexol 180 (CONTRAST) 10 ML SDV IV ONE (06:49)
[2019-04-02] MEDS ORDERED: Midazolam* 1 MG/ML 5 ML VIAL (5 MG) ONE (07:28)
[2019-04-02] MEDS ORDERED: Rocuronium* 10 MG/ML VIAL ONE (07:28)
[2019-04-02] MEDS ORDERED: fentaNYL* 50 MCG/ML 2 ML VIAL (100 MCG VIAL) ONE ×2 (07:28→08:13)
[2019-04-02] MEDS ORDERED: Propofol* 10 MG/ML 20 ML BTL ONE (07:28)
[2019-04-02] MEDS ORDERED: Dexamethasone IV* 4 MG/ML 1 ML (4 MG) ONE (07:37)
[2019-04-02] MEDS ORDERED: Lidocaine 2% PF * 5 ML VIAL ONE (07:38)
[2019-04-02] MEDS ORDERED: Ketorolac INJ* 30 MG/ML 1 ML VIAL ONE (08:19)
[2019-04-02] MEDS ORDERED: Ondansetron INJ* 2 MG/ML VIAL ONE (08:19)
[2019-04-02] MEDS ORDERED: Ondansetron INJ* 2 MG/ML VIAL IV PRN (08:31)
[2019-04-02] MEDS ORDERED: Naloxone* 0.4 MG/ML 1 ML VIAL IV PRN (08:31)
[2019-04-02] MEDS ORDERED: HYDROmorphone INJ1* 1 MG/ML SYRINGE IV PRN (08:31)
[2019-04-02] MEDS ORDERED: fentaNYL* 50 MCG/ML 2 ML VIAL (100 MCG VIAL) IV PRN (08:31)
[2019-04-02] MEDS ORDERED: oxyCODONE/Acetamin 5/325 MG* TAB PO PRN (08:31)
[2019-04-02] MEDS ORDERED: Neostigmine Methylsulfate* 1 MG/ML 10 ML VIAL (1 mg/ml) ONE (08:45)
[2019-04-02] MEDS ORDERED: Glycopyrrolate IV* 0.2 MG/ML 1 ML VIAL ONE (08:45)
[2019-04-02] MEDS ORDERED: oxyCODONE/Acetamin 5/325 MG* TAB ONE (09:25)
[2019-04-02 10:02] VITALS: BP 117/73
--- NOTE | 2019-04-02 22:52 | OP ---
DATE OF OPERATION: 04/02/19 [facility] DATE OF : 59 SURGEON: Linus Paris MD. NURSE OUTREACH CASE MANAGER: Ani Hummel NP. ANESTHESIOLOGIST: Dr. Franklin. ANESTHESIA: General with local. PRE-OP DIAGNOSES: Chronic acalculous cholecystitis, biliary dyskinesia. POST-OP DIAGNOSIS: Chronic acalculous cholecystitis, biliary dyskinesia. OPERATIVE PROCEDURE: Laparoscopic cholecystectomy. ESTIMATED BLOOD LOSS: Minimal. SPECIMENS: Gallbladder. WOUND CLASSIFICATION: II. COMPLICATIONS: None. DRAINS: None. DESCRIPTION OF PROCEDURE: Written informed consent was obtained, the abdomen was marked with indelible ink and preoperative antibiotics were administered. The patient was taken to the operating room and placed in the supine position. Sequential compression devices and a warming blanket were applied. General anesthesia was administered. The abdomen was prepped and draped in the usual sterile fashion. Time-out verification was completed. Initially, a small transverse incision was made at the midline just above the umbilicus and the peritoneal cavity was entered under direct vision. A 12-mm blunt port was inserted and the abdomen was insufflated to 15 mmHg. Under direct vision, an 11-mm epigastric port was placed and two 5-mm ports were placed in the right side of the abdominal wall. Gallbladder was identified. It was nondistended and abnormal wall thickness without evidence of acute or chronic inflammation. The liver was unremarkable. There were some adhesions to the anterior abdominal wall from previous surgical port placement and these were taken down sharply to expose the right lateral abdominal wall better. The gallbladder was then grasped and elevated over the liver bed. With care, the peritoneum along the medial and lateral aspects of the gallbladder was taken down to expose the cystic duct and artery as I entered the gallbladder. I took a considerable portion of the inferior part of the gallbladder off the liver bed using the critical view technique to assure myself of these structures. The cystic duct was of expected and normal caliber. It was triply clipped and divided. The cystic artery was also clipped and divided. The gallbladder was removed from the liver bed and placed in an EndoCatch bag and brought out through the epigastric incision. The liver bed was evaluated and hemostasis was assured. All ports were removed under direct vision of the camera. There was no abdominal wall bleeding. The umbilical fascia was closed with interrupted 0 Vicryl suture. The skin was approximated and all 4 incisions with subcuticular 4-0 Vicryl suture. Steri- Strips were applied. The patient tolerated the procedure well and was taken to the recovery room in stable condition. [id number]/[facility] #: [id number] SHREYA
== END 2019-04-02 11:09 | disposition home or self-care (01) ==
LOC: OR 05:38
PROVIDERS: ATTEND Surgery
DX: K80.10 Calculus of gallbladder with chronic cholecystitis without obstruction (principal); R10.13 Epigastric pain; K21.9 Gastro-esophageal reflux disease without esophagitis; J45.909 Unspecified asthma, uncomplicated; M19.90 Unspecified osteoarthritis, unspecified site; Z85.42 Personal history of malignant neoplasm of other parts of uterus
CPT/HCPCS: 88304; A9270-GY; J0690; J1100; J1885; J2250; J2405; J2704; J2710; J3010